=== PATIENT | male | born 1950 | race African-American/Black ===

== ENCOUNTER 2022-03-13 13:04 | Emergency (ER) | payer OTHER ==
[~2022-03-13] VITALS: Ht 177.8 cm; Wt 74.0 kg
[2022-03-13 13:06] VITALS: BP 118/86
[2022-03-13] MEDS: HYDROCODONE/ACETAMINOPHEN 5/325MG TABLET PO ONE (19:37)
[2022-03-13] MEDS: IBUPROFEN 600MG TABLET PO ONE (19:37)
[2022-03-13] MEDS ORDERED: HYDR-4001 MT (20:28)
== END 2022-03-13 20:49 | disposition home or self-care (01) ==
LOC: ER 13:04
DX: S80.02XA Contusion of left knee, initial encounter (principal); I10 Essential (primary) hypertension; Z98.890 Other specified postprocedural states; W18.30XA Fall on same level, unspecified, initial encounter; Y93.89 Activity, other specified; Y92.89 Other specified places as the place of occurrence of the external cause; Y99.8 Other external cause status
CPT/HCPCS: 73562; 99283